=== PATIENT | female | born 1965 | race Asian ===

== ENCOUNTER → 2017-12-26 | Outpatient (CLI) | payer BC ==
[2017-12-26 07:40] LABS: BASOPHILS % 0.5 % (0.0-2.0); EOSINOPHILS % 4.2 % (0.0-5.0); HEMATOCRIT. 38.5 % (36.0-48.0); HEMOGLOBIN. 12.5 g/dL (12.0-16.0); LYMPHOCYTES % 33.6 % (20.0-50.0); MEAN CORPUSCULAR VOLUME 82.9 fL (81.0-99.0); MONOCYTES % 7.2 % (2.0-8.0); NEUTROPHILS % 54.5 % (40.0-76.0); PLATELET 253 x1000/uL (130-400); RED BLOOD CELL COUNT 4.65 mill/uL (4.2-5.4); RED CELL DISTRIBUTION WIDTH 13.6 % (11.6-14.6)
[2017-12-26 07:44] LABS: KETONES URINE NEGATIVE (NEGATIVE); LEUKOCYTE ESTERASE URINE NEGATIVE (NEGATIVE); NITRITE URINE NEGATIVE (NEGATIVE); OCCULT BLOOD URINE NEGATIVE (NEGATIVE); PH URINE 5.5 (4.5-8.0); PROTEIN URINE NEGATIVE (NEGATIVE); SPECIFIC GRAVITY URINE 1.046 (1.005-1.030); UROBILINOGEN URINE 0.2 E.U./dL (0.2-1.0)
[2017-12-26 07:48] LABS: CLARITY URINE CLEAR (CLEAR); COLOR URINE YELLOW (YELLOW)
[2017-12-26 08:31] LABS: VITAMIN B12 SERUM 923 pg/mL (211-911)
[2017-12-27 13:07] LABS: *CREATININE RANDOM URINE 207.6 mg/dL (Not Estab.); MICROALBUMIN RANDOM URINE 25.9 ug/mL (Not Estab.)
== END | disposition home or self-care (01) ==
LOC: LAB 06:39
PROVIDERS: ATTEND Internal Medicine Geriatric Medicine
DX: Z00.01 Encounter for general adult medical examination with abnormal findings (principal); I10 Essential (primary) hypertension; E11.9 Type 2 diabetes mellitus without complications; E66.01 Morbid (severe) obesity due to excess calories; N39.0 Urinary tract infection, site not specified
CPT/HCPCS: 36415; 80061; 81003; 82043; 82306; 82570; 82607; 83036; 83540; 83550; 84443; 85025; 86592; 87086

== ENCOUNTER → 2018-10-15 | Outpatient (CLI) | payer BC ==
[2018-10-15 08:56] LABS: BASOPHILS % 0.4 % (0.0-2.0); EOSINOPHILS % 4.4 % (0.0-5.0); HEMATOCRIT. 40.1 % (36.0-48.0); LYMPHOCYTES % 24.3 % (20.0-50.0); MEAN CORPUSCULAR HEMOGLOBIN 27.1 pg (28.0-32.0); MEAN CORPUSCULAR VOLUME 83.8 fL (81.0-99.0); MEAN PLATELET VOLUME 7.5 fl (7.4-10.4); MONOCYTES % 5.6 % (2.0-8.0); NEUTROPHILS % 65.3 % (40.0-76.0); PLATELET 268 x1000/uL (130-400); RED BLOOD CELL COUNT 4.79 mill/uL (4.2-5.4); RED CELL DISTRIBUTION WIDTH 13.2 % (11.6-14.6)
[2018-10-15 09:08] LABS: CHLORIDE 97 mEq/L (98-107)
[2018-10-15 09:15] LABS: LDL CHOLESTEROL 101 mg/dL (5-100)
[2018-10-15 09:16] LABS: HDL CHOLESTEROL 47 mg/dL (40-59)
== END | disposition home or self-care (01) ==
LOC: LAB 08:27
PROVIDERS: ATTEND Internal Medicine Geriatric Medicine
DX: I12.9 Hypertensive chronic kidney disease with stage 1 through stage 4 chronic kidney disease, or unspecified chronic kidney disease (principal); N18.9 Chronic kidney disease, unspecified
CPT/HCPCS: 36415; 80061; 83036

== ENCOUNTER → 2021-02-17 | Outpatient (CLI) | payer BC ==
[2021-02-17 08:47] LABS: BASOPHILS % 0.5 % (0.0-2.0); EOSINOPHILS % 2.9 % (0.0-5.0); HEMATOCRIT. 34.8 % (36.0-48.0); HEMOGLOBIN. 11.5 g/dL (12.0-16.0); LYMPHOCYTES % 28.8 % (20.0-50.0); MEAN CORPUSCULAR HEMOGLOBIN 27.3 pg (28.0-32.0); MEAN CORPUSCULAR VOLUME 82.6 fL (81.0-99.0); MEAN PLATELET VOLUME 7.4 fl (7.4-10.4); MONOCYTES % 5.1 % (2.0-8.0); NEUTROPHILS % 62.7 % (40.0-76.0); PLATELET 293 x1000/uL (130-400); RED BLOOD CELL COUNT 4.21 mill/uL (4.2-5.4); RED CELL DISTRIBUTION WIDTH 13.5 % (11.6-14.6)
[2021-02-17 08:56] LABS: CHLORIDE 96 mEq/L (98-107)
[2021-02-17 09:04] LABS: LDL CHOLESTEROL 113 mg/dL (5-100); TOTAL IRON BINDING CAPACITY 390 ug/dL (250-450)
[2021-02-17 09:05] LABS: HDL CHOLESTEROL 51 mg/dL (40-59)
[2021-02-17 09:08] LABS: CLARITY URINE CLEAR (CLEAR); COLOR URINE YELLOW (YELLOW); KETONES URINE TRACE (NEGATIVE); LEUKOCYTE ESTERASE URINE NEGATIVE (NEGATIVE); NITRITE URINE NEGATIVE (NEGATIVE); OCCULT BLOOD URINE NEGATIVE (NEGATIVE); PH URINE 5.5 (4.5-8.0); PROTEIN URINE NEGATIVE (NEGATIVE); SPECIFIC GRAVITY URINE 1.019 (1.005-1.030); UROBILINOGEN URINE 0.2 E.U./dL (0.2-1.0)
[2021-02-17 10:04] LABS: VITAMIN B12 SERUM 680 pg/mL (211-911)
[2021-02-17 10:28] LABS: FOLIC ACID (FOLATE) SERUM > 20.00 ng/mL (>5.38)
[2021-02-17 11:49] LABS: CARCINO EMBRYONIC ANTIGEN 0.9 ng/ml; FERRITIN 99 ng/mL (10-291)
[2021-02-18 08:08] LABS: CANCER ANTIGEN 125 9.8 U/mL (0.0-38.1); VITAMIN D 25-OH 31.1 ng/mL (30.0-100.0)
== END | disposition home or self-care (01) ==
LOC: US 08:19
PROVIDERS: ATTEND Internal Medicine Geriatric Medicine
DX: Z12.31 Encounter for screening mammogram for malignant neoplasm of breast (principal); Z00.01 Encounter for general adult medical examination with abnormal findings; E11.40 Type 2 diabetes mellitus with diabetic neuropathy, unspecified; E66.01 Morbid (severe) obesity due to excess calories; I10 Essential (primary) hypertension; Z03.818 Encounter for observation for suspected exposure to other biological agents ruled out; N39.0 Urinary tract infection, site not specified; N85.9 Noninflammatory disorder of uterus, unspecified
CPT/HCPCS: 36415; 76830; 76856; 77067; 80053; 80061; 81003; 82306; 82378; 82607; 82728; 82746; 83036; 83540; 83550; 84443; 85025; 86304; 86592

== ENCOUNTER → 2021-03-03 | Outpatient (CLI) | payer BC ==
[~2021-03-03] MED LIST: GADOTERATE MEGLUMINE 5 MMOL/10 ML VIAL IV ONE
== END | disposition home or self-care (01) ==
LOC: MRI 07:34
PROVIDERS: ATTEND Internal Medicine Geriatric Medicine
DX: D25.9 Leiomyoma of uterus, unspecified (principal); N85.2 Hypertrophy of uterus
CPT/HCPCS: 72197; A9577

== ENCOUNTER → 2022-02-12 | Outpatient (CLI) | payer BC ==
[2022-02-12 07:29] LABS: BASOPHILS % 0.4 % (0.0-2.0); EOSINOPHILS % 3.2 % (0.0-5.0); HEMATOCRIT. 35.2 % (36.0-48.0); HEMOGLOBIN. 11.7 g/dL (12.0-16.0); LYMPHOCYTES % 28.2 % (20.0-50.0); MEAN PLATELET VOLUME 7.3 fl (7.4-10.4); MONOCYTES % 6.2 % (2.0-8.0); PLATELET 279 x1000/uL (130-400); RED BLOOD CELL COUNT 4.35 mill/uL (4.2-5.4); RED CELL DISTRIBUTION WIDTH 13.4 % (11.6-14.6)
[2022-02-12 07:33] LABS: CLARITY URINE CLEAR (CLEAR); COLOR URINE YELLOW (YELLOW); KETONES URINE TRACE (NEGATIVE); LEUKOCYTE ESTERASE URINE NEGATIVE (NEGATIVE); NITRITE URINE NEGATIVE (NEGATIVE); OCCULT BLOOD URINE NEGATIVE (NEGATIVE); PROTEIN URINE NEGATIVE (NEGATIVE); SPECIFIC GRAVITY URINE 1.037 (1.005-1.030); UROBILINOGEN URINE 0.2 E.U./dL (0.2-1.0)
[2022-02-12 08:12] LABS: CARCINO EMBRYONIC ANTIGEN 1.5 ng/ml
[2022-02-12 08:25] LABS: FOLIC ACID (FOLATE) SERUM 15.8 ng/mL (>5.38)
[2022-02-12 14:05] LABS: CHLORIDE 104 mEq/L (98-107)
[2022-02-12 14:24] LABS: HDL CHOLESTEROL 48 mg/dL (40-59); LDL CHOLESTEROL 116 mg/dL (5-100); TOTAL IRON BINDING CAPACITY 349 ug/dL (250-450)
[2022-02-13 09:08] LABS: FOLICLE STIMULATING HORMONE 42.2 mIU/mL (.)
[2022-02-13 13:11] LABS: *CREATININE RANDOM URINE 197.7 mg/dL (Not Estab.); MICROALBUMIN RANDOM URINE 23.6 ug/mL (Not Estab.)
[2022-02-14 15:10] LABS: VITAMIN D 1-25 DIHYDROXY 11.6 pg/mL (19.9-79.3)
== END | disposition home or self-care (01) ==
LOC: LAB 06:45
PROVIDERS: ATTEND Internal Medicine Geriatric Medicine
DX: Z00.01 Encounter for general adult medical examination with abnormal findings (principal); E11.40 Type 2 diabetes mellitus with diabetic neuropathy, unspecified; I10 Essential (primary) hypertension; K76.0 Fatty (change of) liver, not elsewhere classified; E66.01 Morbid (severe) obesity due to excess calories; N39.0 Urinary tract infection, site not specified
CPT/HCPCS: 36415; 80053; 80061; 81003; 82043; 82378; 82570; 82607; 82652; 82728; 82746; 83001; 83036; 83540; 83550; 84436; 84443; 85025; 85651; 86592

== ENCOUNTER → 2022-12-27 | Outpatient (CLI) | payer BC ==
[2022-12-27 07:17] LABS: BASOPHILS % 0.3 % (0.0-2.0); EOSINOPHILS % 2.4 % (0.0-5.0); HEMATOCRIT. 35.2 % (36.0-48.0); HEMOGLOBIN. 11.6 g/dL (12.0-16.0); LYMPHOCYTES % 24.7 % (20.0-50.0); MEAN CORPUSCULAR HEMOGLOBIN 26.9 pg (28.0-32.0); MEAN CORPUSCULAR VOLUME 81.8 fL (81.0-99.0); MEAN PLATELET VOLUME 7.7 fl (7.4-10.4); MONOCYTES % 5.2 % (2.0-8.0); NEUTROPHILS % 67.4 % (40.0-76.0); PLATELET 265 x1000/uL (130-400); RED BLOOD CELL COUNT 4.31 mill/uL (4.2-5.4)
[2022-12-27 09:34] LABS: CHLORIDE 100 mEq/L (98-107)
[2022-12-27 09:50] LABS: HDL CHOLESTEROL 48 mg/dL (40-59); LDL CHOLESTEROL 104 mg/dL (5-100)
== END | disposition home or self-care (01) ==
LOC: LAB 06:43
PROVIDERS: ATTEND Internal Medicine Geriatric Medicine
DX: I10 Essential (primary) hypertension (principal); E11.69 Type 2 diabetes mellitus with other specified complication
CPT/HCPCS: 36415; 80053; 80061; 83036; 85025

== ENCOUNTER → 2024-04-24 | Outpatient (CLI) | payer BC ==
[2024-04-24 07:43] LABS: CHLORIDE 99 mEq/L (98-107); POTASSIUM 3.6 mEq/L (3.5-5.1); SODIUM 133 mEq/L (136-145)
[2024-04-24 07:44] LABS: CALCIUM 9.3 mg/dL (8.7-10.4); CARBON DIOXIDE 28 mEq/L (21-32)
[2024-04-24 07:48] LABS: IRON 64 ug/dL (50-170)
[2024-04-24 07:49] LABS: CREATININE 0.7 mg/dL (0.6-1.0); GLUCOSE 328 mg/dL (70-105); TRIGLYCERIDE 215 mg/dL (0-150); UREA NITROGEN BLOOD 14 mg/dL (9-23)
[2024-04-24 07:50] LABS: LDL CHOLESTEROL 127 mg/dL (5-100)
[2024-04-24 07:51] LABS: ALANINE AMINOTRANSFERASE 39 IU/L (10-49); ALBUMIN 4.6 g/dL (3.2-4.8); ASPARTATE AMINOTRANSFERASE 34 IU/L (<34); BILIRUBIN TOTAL 0.4 mg/dL (0.1-1.0); CHOLESTEROL 191 mg/dL (<200); HDL CHOLESTEROL 46 mg/dL (>65); PROTEIN TOTAL 7.7 g/dL (6.0-8.3); TOTAL IRON BINDING CAPACITY 356 ug/dl (250-425)
[2024-04-24 07:55] LABS: BASOPHILS % 0.5 % (0.0-2.0); HEMATOCRIT. 38.4 % (36.0-48.0); HEMOGLOBIN. 12.4 g/dL (12.0-16.0); LYMPHOCYTES % 28.3 % (20.0-50.0); MEAN CORPUSCULAR HEMOGLOBIN 26.7 pg (28.0-32.0); MEAN CORPUSCULAR HGB CONC 32.1 g/dL (31.0-37.0); MEAN PLATELET VOLUME 7.9 fl (7.4-10.4); MONOCYTES % 5.8 % (2.0-8.0); NEUTROPHILS % 61.4 % (40.0-76.0); PLATELET 290 x1000/uL (130-400); RED BLOOD CELL COUNT 4.63 mill/uL (4.2-5.4); RED CELL DISTRIBUTION WIDTH 13.1 % (11.6-14.6); THYROID STIMULATING HORMONE 0.75 uIU/mL (0.55-4.78); WHITE BLOOD COUNT 6.3 x1000/uL (4.5-11.0)
[2024-04-25 08:09] LABS: VITAMIN D 25-OH 16.2 ng/mL (30.0-100.0)
== END | disposition home or self-care (01) ==
LOC: LAB 06:43
PROVIDERS: ATTEND Internal Medicine Geriatric Medicine
DX: Z00.01 Encounter for general adult medical examination with abnormal findings (principal); E11.69 Type 2 diabetes mellitus with other specified complication
CPT/HCPCS: 36415; 80053; 80061; 82306; 83036; 83540; 83550; 84443; 84550; 85025; 86592

== ENCOUNTER → 2024-05-01 | Outpatient (CLI) | payer BC | END | disposition home or self-care (01) | LOC: MAMMO 07:39 | PROVIDERS: ATTEND Internal Medicine Geriatric Medicine | DX: Z12.31 Encounter for screening mammogram for malignant neoplasm of breast (principal); R92.323 Mammographic fibroglandular density, bilateral breasts | CPT/HCPCS: 77063; 77067 ==

== ENCOUNTER → 2024-12-11 | Outpatient (CLI) | payer BC ==
[2024-12-11 12:00] LABS: CHLORIDE 96 mEq/L (98-107); POTASSIUM 3.6 mEq/L (3.5-5.1); SODIUM 133 mEq/L (136-145)
[2024-12-11 12:01] LABS: CALCIUM 9.8 mg/dL (8.7-10.4); CARBON DIOXIDE 31 mEq/L (21-32)
[2024-12-11 12:06] LABS: UREA NITROGEN BLOOD 12 mg/dL (9-23)
[2024-12-11 12:08] LABS: ALANINE AMINOTRANSFERASE 31 IU/L (10-49); ALBUMIN 4.3 g/dL (3.2-4.8); ASPARTATE AMINOTRANSFERASE 29 IU/L (<34)
[2024-12-11 12:09] LABS: BILIRUBIN TOTAL 0.4 mg/dL (0.1-1.0); PROTEIN TOTAL 7.9 g/dL (6.0-8.3)
[2024-12-11 14:37] LABS: GLUCOSE 450 mg/dL (70-105)
== END | disposition home or self-care (01) ==
LOC: LAB 11:25
PROVIDERS: ATTEND Internal Medicine Geriatric Medicine
DX: I10 Essential (primary) hypertension (principal); E11.69 Type 2 diabetes mellitus with other specified complication
CPT/HCPCS: 36415; 80053; 83036